=== PATIENT | male | born 1965 | race Caucasian/White ===

== ENCOUNTER 2019-05-02 00:26 | Emergency (ER) | payer OTHER ==
[~2019-05-02] VITALS: Ht 170.2 cm; Wt 72.6 kg
[2019-05-02 00:32] VITALS: Ht 170.2 cm; Wt 72.6 kg
[2019-05-02 02:13] LABS: BASOPHIL % 0.7 % (0-2); PLATELET COUNT 290 x10^3mcL (130-400); RED CELL DISTRIBUTION WIDTH 13.6 % (11.5-14.5)
[2019-05-02 02:14] LABS: CALCIUM 8.8 mg/dL (8.5-10.1); CARBON DIOXIDE 26.8 mmol/L (21-32); CHLORIDE SERUM 105 mmol/L (98-107); GFR1 > 60 mL/min; GLUCOSE SERUM 113 mg/dL (74-106); POTASSIUM SERUM 4.2 mmol/L (3.5-5.1); SODIUM SERUM 141 mmol/L (136-145)
[2019-05-02 02:18] LABS: microscopic required? YES; urine erythrocyte NEGATIVE (NEGATIVE)
[2019-05-02 02:19] LABS: ALBUMIN 3.4 g/dL (3.4-5.0); ALKALINE PHOSPHATASE 68 U/L (46-116); ALT/SGPT 22 U/L (16-63); AST/SGOT 11 U/L (15-37); BILIRUBIN TOTAL 0.26 mg/dL (0.20-1.00); TOTAL PROTEIN, SERUM 6.4 g/dL (6.4-8.2)
[2019-05-02 02:31] LABS: AMPHETAMINE QUAL UR NONE DETECTED (See below)
[2019-05-02 06:30] VITALS: BP 112/75
== END 2019-05-02 06:30 | disposition home or self-care (01) ==
LOC: ED 00:26
PROVIDERS: Emergency Medicine
DX: J01.90 Acute sinusitis, unspecified (principal); J45.909 Unspecified asthma, uncomplicated
CPT/HCPCS: G0480; J1885; J2765

== ENCOUNTER 2020-05-17 16:51 | Emergency (ER) | payer OTHER, SELFPAY ==
[~2020-05-17] VITALS: Ht 170.2 cm; Wt 81.2 kg
[2020-05-17 17:10] VITALS: Ht 170.2 cm; Wt 81.2 kg
[2020-05-17 17:39] LABS: BASOPHIL % 0.8 % (0-2); PLATELET COUNT 319 x10^3mcL (130-400); RED CELL DISTRIBUTION WIDTH 12.9 % (11.5-14.5)
[2020-05-17 18:16] LABS: CARBON DIOXIDE 31.7 mmol/L (21-32); CHLORIDE SERUM 102 mmol/L (98-107); CREATININE SERUM 1.1 mg/dL (0.7-1.3); GFR1 > 60 mL/min; GLUCOSE SERUM 116 mg/dL (74-106); POTASSIUM SERUM 4.4 mmol/L (3.5-5.1); SODIUM SERUM 139 mmol/L (136-145)
[2020-05-17 18:21] LABS: ALBUMIN 3.9 g/dL (3.4-5.0); ALKALINE PHOSPHATASE 71 U/L (46-116); ALT/SGPT 26 U/L (16-63); AST/SGOT 17 U/L (15-37); BILIRUBIN TOTAL 0.55 mg/dL (0.20-1.00); CHOLESTEROL 168 mg/dL (<200); HDL CHOLESTEROL 75 mg/dL (40-60); LIPASE 108 IU/L (73-393); TOTAL PROTEIN, SERUM 6.8 g/dL (6.4-8.2)
[2020-05-17 21:10] VITALS: BP 130/92
[2020-05-17 21:35] LABS: UA SPECIFIC GRAVITY >=1.030 (1.005-1.035); microscopic required? YES; urine erythrocyte TRACE (NEGATIVE)
[2020-05-17 21:57] LABS: AMPHETAMINE QUAL UR POSITIVE (See below)
== END 2020-05-17 21:13 | disposition home or self-care (01) ==
LOC: ED 16:51
PROVIDERS: Emergency Medicine
DX: J45.901 Unspecified asthma with (acute) exacerbation (principal); J98.11 Atelectasis; F17.210 Nicotine dependence, cigarettes, uncomplicated; Z20.828 Contact with and (suspected) exposure to other viral communicable diseases
CPT/HCPCS: 36600; 83880; 99406; J2930; J3475; J7030; J7613; J7644; Q0092; U0003-CS

== ENCOUNTER 2020-07-08 00:23 | Emergency (ER) | payer OTHER ==
[~2020-07-08] VITALS: Ht 170.2 cm; Wt 69.9 kg
[2020-07-08 00:43] VITALS: Ht 170.2 cm; Wt 69.9 kg
[2020-07-08 02:21] VITALS: BP 125/92
== END 2020-07-08 02:21 | disposition home or self-care (01) ==
LOC: ED 00:23
DX: J45.901 Unspecified asthma with (acute) exacerbation (principal); F17.210 Nicotine dependence, cigarettes, uncomplicated
CPT/HCPCS: J3535; J7512

== ENCOUNTER 2020-10-10 14:29 | Emergency (ER) | payer OTHER ==
[~2020-10-10] VITALS: Ht 170.2 cm; Wt 72.6 kg
[2020-10-10 14:56] VITALS: BP 119/80; Ht 170.2 cm; Wt 72.6 kg
== END 2020-10-10 15:54 | disposition home or self-care (01) ==
LOC: ED 14:29
DX: J45.909 Unspecified asthma, uncomplicated (principal); Z76.0 Encounter for issue of repeat prescription